=== PATIENT | female | born 1960 | race Caucasian/White ===

== ENCOUNTER 2021-08-07 23:25 | Emergency (ER) | payer SELFPAY ==
[~2021-08-07] VITALS: Ht 154.9 cm; Wt 79.8 kg
[2021-08-07 23:40] VITALS: BP 125/76
[2021-08-08 00:36] VITALS: BP 125/76
--- NOTE | 2021-08-08 00:36 | NUR ---
PATIENT ELOPED FROM FACILITY. DISCHARGE INSTRUCTIONS NOT GIVEN TO PATIENT. DR. SCHERER NOTIFIED.
== END 2021-08-08 00:36 | disposition left against medical advice (07) ==
LOC: MED 23:25
DX: B34.9 Viral infection, unspecified (principal)
CPT/HCPCS: 99281

== ENCOUNTER 2021-08-08 13:12 | Emergency (ER) | payer SELFPAY ==
[~2021-08-08] VITALS: Ht 165.1 cm; Wt 90.7 kg
[2021-08-08 14:18] VITALS: BP 126/70
[2021-08-08] MEDS ORDERED: REGENERON ANTIBODY ER ORDER 1 EA MISC MC ONE (14:50)
--- NOTE | 2021-08-08 15:37 | NUR ---
PT AMBULATED TO BED 2
--- NOTE | 2021-08-08 15:58 | NUR ---
becky kraft swab and lab work collected bedside and handed to director of cardiac cath lab
--- NOTE | 2021-08-08 16:03 | NUR ---
60 Y FEMELA REFERRED BY PHYSICIAN DUE TO COVID POSITIVE TEST X6DAYS AGO. PER PT SHE WAS REFERRED TO COME IN AND OBTAIN REGERON. PT DENIES ANY SOB OR CHEST PAIN AT THIS MOMENT. PMH:HTN, DM NKA
--- NOTE | 2021-08-08 16:07 | NUR ---
PT RESTING IN BED CURRENTLY WITH EYES CLOSED. 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 VITAL SIGNS STABLE. WILL CONTINUE TO MONITOR
--- NOTE | 2021-08-08 17:50 | NUR ---
COVID NOVEL SWAB COLLECTED AND WALKED OVER TO LAB BY LEONA GOYAL
[2021-08-08 17:53] VITALS: BP 102/64
--- NOTE | 2021-08-08 17:53 | NUR ---
Patient discharged with v/s stable. Written and verbal after care instructions given and explained. Patient verbalized understanding. Ambulatory with steady gait. All questions addressed prior to discharge. Advised to follow up with PMD.
== END 2021-08-08 17:53 | disposition home or self-care (01) ==
LOC: MED 13:12
DX: J06.9 Acute upper respiratory infection, unspecified (principal); Z20.822 Contact with and (suspected) exposure to COVID-19; Z88.0 Allergy status to penicillin
CPT/HCPCS: 71045; 87426; 99284; U0003